=== PATIENT | female | born 1945 | race Native Hawaiian/Other Pacific Islander ===

== ENCOUNTER 2020-06-16 11:46 | Outpatient (CLI) | payer OTHER, BC | END 2020-06-16 19:35 | disposition home or self-care (01) | LOC: LABW 11:46 | PROVIDERS: ATTEND Internal Medicine | DX: E53.8 Deficiency of other specified B group vitamins (principal) | CPT/HCPCS: 36415; 82607; 82747 ==

== ENCOUNTER 2020-07-07 11:48 | Inpatient (IN) | payer OTHER, BC ==
[~2020-07-07] VITALS: Ht 162.6 cm; Wt 78.9 kg
[2020-07-07 11:57] VITALS: BP 149/83; TEMP 99.3
[2020-07-07 13:18] LABS: PLATELET COUNT 262 K/uL (152-353)
[2020-07-07 13:23] LABS: POTASSIUM 4.9 mmol/L (3.6-5.2)
[2020-07-07 14:00] VITALS: BP 137/73
[2020-07-07 17:49] VITALS: BP 162/77; TEMP 98.3; Ht 162.6 cm; Wt 78.9 kg
[2020-07-07] MEDS ORDERED: HYDR5TAB9 PO (17:58)
[2020-07-07] MEDS ORDERED: JANUVIA100 MG PO (17:58)
[2020-07-07] MEDS ORDERED: GLIM4TAB PO (17:59)
[2020-07-07] MEDS ORDERED: SERTRALINE HYDR50 MG PO (18:00)
[2020-07-07] MEDS ORDERED: CYCL10TA35 PO (18:01)
[2020-07-07] MEDS ORDERED: METO50TA27 PO (18:02)
[2020-07-07] MEDS ORDERED: HYDRALAZINE25 MG PO (18:03)
[2020-07-07] MEDS ORDERED: MELOXICAM7.5 MG PO (18:05)
[2020-07-07] MEDS ORDERED: FOLI1TAB26 PO (18:06)
[2020-07-07] MEDS ORDERED: METF500T PO (18:07)
[2020-07-07] MEDS ORDERED: SIMV20TA2 PO (18:07)
[2020-07-07] MEDS ORDERED: ALEN70TA19 PO (18:08)
[2020-07-07] MEDS ORDERED: INSUINJP SC (18:11)
[2020-07-07] MEDS ORDERED: CEFU500T2 PO (18:12)
[2020-07-07 19:43] VITALS: BP 154/77; TEMP 97.6
[2020-07-07 23:34] VITALS: BP 124/50; TEMP 98.2
[2020-07-08 03:50] VITALS: BP 141/77; TEMP 97.4
[2020-07-08 04:51] LABS: PLATELET COUNT 252 K/uL (152-353)
[2020-07-08 08:00] VITALS: BP 138/83; TEMP 98.2
[2020-07-08 12:03] VITALS: BP 137/75; TEMP 98.3
[2020-07-08 14:00] VITALS: BP 144/85; TEMP 98.3
[2020-07-08 19:54] VITALS: BP 147/81; TEMP 99.2
[2020-07-08 23:54] VITALS: BP 143/78; TEMP 98.2
[2020-07-09 04:03] VITALS: BP 153/79; TEMP 98.1
[2020-07-09 05:39] LABS: PLATELET COUNT 276 K/uL (152-353)
[2020-07-09 05:44] LABS: POTASSIUM 3.5 mmol/L (3.6-5.2)
[2020-07-09 08:00] VITALS: BP 147/91; TEMP 98.1
[2020-07-09 12:00] VITALS: BP 162/90; TEMP 98.5
[2020-07-09 16:00] VITALS: BP 156/84; TEMP 98.9
[2020-07-09 20:00] VITALS: BP 167/92; TEMP 99.2
[2020-07-10] VITALS: BP 132/74; TEMP 99.5
[2020-07-10 04:07] VITALS: BP 165/88; TEMP 97.5
[2020-07-10 05:01] LABS: POTASSIUM 3.8 mmol/L (3.6-5.2)
[2020-07-10 05:30] LABS: PLATELET COUNT 289 K/uL (152-353)
[2020-07-10 08:00] VITALS: BP 110/67; TEMP 98.1
[2020-07-10 12:00] VITALS: BP 136/85; TEMP 98.4
[2020-07-10 16:00] VITALS: BP 156/81; TEMP 97.3
[2020-07-10 20:00] VITALS: BP 181/98; TEMP 98
[2020-07-11] VITALS: BP 159/94; TEMP 97.2
[2020-07-11 04:00] VITALS: BP 163/96; TEMP 98
[2020-07-11 05:45] LABS: POTASSIUM 3.3 mmol/L (3.6-5.2)
[2020-07-11 06:48] LABS: PLATELET COUNT 326 K/uL (152-353)
[2020-07-11 08:00] VITALS: BP 169/92; TEMP 98.2
[2020-07-11 12:00] VITALS: BP 145/81; TEMP 97.5
== END 2020-07-11 13:48 | disposition swing bed (61) | DRG 948 ==
LOC: ED 11:48 → MED/SURG 16:30
PROVIDERS: ADMIT Family Medicine; ATTEND Internal Medicine Endocrinology, Diabetes & Metabolism
DX: R53.1 Weakness (principal); I69.354 Hemiplegia and hemiparesis following cerebral infarction affecting left non-dominant side; E86.0 Dehydration; E83.52 Hypercalcemia; Z91.81 History of falling; D72.818 Other decreased white blood cell count; E11.9 Type 2 diabetes mellitus without complications; E78.49 Other hyperlipidemia
CPT/HCPCS: 36415; 80048; 80053; 81000; 85027; 87635; 96360; 99284; J0696; J1650; J1815; J1956; J3490; U0003

== ENCOUNTER 2020-07-11 13:48 | Inpatient (IN) | payer OTHER, BC ==
[~2020-07-11] VITALS: Ht 162.6 cm; Wt 77.1 kg
[~2020-07-11 13:48] MED LIST: ALEN70TA19 PO; CEFU500T2 PO; CYCL10TA35 PO; FOLI1TAB26 PO; GLIM4TAB PO; HYDR5TAB9 PO; HYDRALAZINE25 MG PO; INSUINJP SC; JANUVIA100 MG PO; MELOXICAM7.5 MG PO; METF500T PO; METO50TA27 PO; SERTRALINE HYDR50 MG PO; SIMV20TA2 PO
[2020-07-11 17:29] VITALS: BP 176/96; TEMP 98.5; Ht 162.6 cm; Wt 77.1 kg
[2020-07-11 20:00] VITALS: BP 173/100; TEMP 98.3
--- NOTE | 2020-07-11 20:40 | NUR ---
ENTERED PATIENT'S ROOM AT THIS TIME. PATIENT RESTING QUIETLY IN BED WATCHING TV. NC INTACT @ 3L/MIN. LABORED WORK OF BREATHING NOTED. PT STATES SHE DOES NOT FEEL SHORT OF BREATH. PM ASSESSMENT PERFORMED AT THIS TIME. DENIES PAIN. NAD NOTED. BED ALARM ON. BED LOCKED AND IN LOWEST POSITION. CALL LIGHT WITHIN EASY REACH.
--- NOTE | 2020-07-11 23:30 | NUR ---
ENTERED PATIENT'S ROOM TO RECHECK BLOOD PRESSURE. 171/97 AT THIS TIME. PATIENT WAS GIVEN HYDRALAZINE 25MG, METOPROLOL 50MG, AMLODIPINE 5MG @ 2029. PATIENT WAS CONFUSED UPON WAKING, STATING, "WHERE IS TIGER AT?" SHE WAS UNAWARE THAT SHE WAS IN THE HOSPITAL. THIS BOAT MECHANIC HAD TO RE-ORIENT HER SEVERAL TIMES. AFTER RE-ORIENTING HER, PATIENT WAS ABLE TO ANSWER ALL QUESTIONS REGARDING TIME, DATE. I DID ASSIST HER TO THE BEDSIDE COMMODE. I HAD TO REMIND PATIENT TO USE THE QUAD CANE FOR ASSISTANCE. NO NEW ONSET OF WEAKNESS NOTED- SHE HAS LONG-STANDING LEFT SIDED WEAKNESS FROM A PREVIOUS CVA. 9661- CALLED AND SPOKE WITH DR. LO REGARDING THE FOLLOWING. V/S: 171/97, 97% ON 3L, 88, 97.8, BLOOD SUGAR 179. THIS BOAT MECHANIC DID EXPRESS THAT THE B/P WAS NOT CRITICAL, BUT WAS CONCERNED ABOUT THE CONFUSION AND PT'S CVA HISTORY. NO ORDERS GIVEN- CONTINUE TO MONITOR PATIENT.
--- NOTE | 2020-07-12 04:10 | NUR ---
PT'S CURRENT BP IS 160/87 NOW. ALERT AND ORIENTED X 4. ASSISTED TO BSC. 200CC OF CLEAR, YELLOW URINE REMOVED. RESTING QUIETLY IN BED NOW. NC INTACT. BED LOCKED AND IN LOWEST POSITION. BED ALARM ON. CALL LIGHT WITHIN EASY REACH.
--- NOTE | 2020-07-12 06:36 | NUR ---
PATIENT RESTING QUIETLY IN BED WITH EYES CLOSED. NC INTACT @ 3L. RESPIRATIONS EVEN AND UNLABORED. NAD NOTED. BED LOCKED AND IN LOWEST POSITION. SR UP X 2. CALL LIGHT WITHIN EASY REACH.
[2020-07-12 08:00] VITALS: BP 159/100; TEMP 98.1
--- NOTE | 2020-07-12 08:15 | NUR ---
PATIENT RESTING IN BED. MORNING MEDICATIONS GIVEN. PATIENT TOLERATED WELL. PATIENT ASKED TO USE BSC. PCT ASSISTED PATIENT TO BSC. PATIENT BATHED SELF WITH MINIMAL ASSISTANCE. PATIENT BACK IN BED. PATIENT TOLERATED WELL. NAD NOTED.
--- NOTE | 2020-07-12 12:43 | NUR ---
Ms. Mcgregor is a 74 year old white female admitted to this facility on 07/11/2020 for short term rehab. Ms. Mcgregor was admitted from the [facility] after IP hospitalization from 07/07/2020 - 07/11/2020. Patient's primary diagnosis for this swing bed stay is leucocytosis for which she was receiving IV antibiotics. Resident has a right frontal scalp contusion from a recent fall with a history of recurrent falls. Additional diagnoses include: diabetes mellitus type 2, failure to thrive, hyperlipidemia, vitamin D deficiency, history of CVAs with residual left-sided weakness, pernicious anemia, and osteopenia. Resident reported that she lives alone and her family is not able to provide the 02/12 care that she requires at this time. Resident also reported that sometimes she is unable to lift her left leg while ambulating, essentially "dragging" her left leg which she says contributes to her fall risk. Resident was noted to use her right hand to open the fingers of her left hand as she was unable to extend her left fingers otherwise. She also used her right hand to lift her left arm and move it as needed. Ms. Mcgregor requires 24 hour custodial for observation and assessment of her condition, as well as medication and care plan management. Resident requires PT, OT and ST services 5 days per week for treatment of specified diagnosis. These services can only be provided on an inpatient basis, which is why this is a practical matter. Case management will continue to observe and assist with any medically related needs as needed.
--- NOTE | 2020-07-12 16:15 | NUR ---
PCT INFORMED ME OF FSBS OF 69. GAVE PATIENT ORANGE JUICE AND WILL RECHECK SHORTLY.
--- NOTE | 2020-07-12 16:40 | NUR ---
FSBS RECHECKED AT 81. WILL CONTINUE TO MONITOR.
--- NOTE | 2020-07-12 20:35 | NUR ---
PATIET HAS BEEN HELPED WITH MOUTH CARE AND LIPS HAVE BEEN LUBRICATED. PATIENT DENIES ANY PAIN
--- NOTE | 2020-07-13 00:18 | NUR ---
PATIENT IS SHOWING MARKED IMPROVEMENT IN GETTING UP TO THE BSC.
--- NOTE | 2020-07-13 01:43 | NUR ---
PATIENT HAS HAD A COMPLETE BED CHANGE
--- NOTE | 2020-07-13 05:46 | NUR ---
PATIENT IS RESTING AND BREATHS ARE EVEN NON LABORED. PATIENT EARLIER DENIED ANY PAIN
--- NOTE | 2020-07-13 09:30 | NUR ---
PHYSICAL AND SPEECH THERAPY IN TO SEE PATIENT.
--- NOTE | 2020-07-13 10:15 | NUR ---
UPDATE GIVEN TO FAMILY MEMBER SHANNAN.
--- NOTE | 2020-07-13 10:17 | NUR ---
PATIENT AMBULATING IN HALLWAY.
--- NOTE | 2020-07-13 17:48 | NUR ---
11AM SOAP SUDS ENEMA COMPLETED AT THIS TIME PER MD ORDERS. LARGE WATERY BM
--- NOTE | 2020-07-13 18:00 | NUR ---
PT DENIES ANY PAIN OR DISCOMFORT. NO NEEDS VOICED. CALL LIGHT IN REACH
[2020-07-13 19:34] VITALS: BP 161/81; TEMP 99.5
--- NOTE | 2020-07-14 02:41 | NUR ---
PATIENT IS BEINGING MORE ABLE TO ASSIST WITH GOING TO THE BSC. PATIENT IS GETTING STRONGER AND MORE CORRDINATED. HER UTI RESOLVES SHE HAS LESS PROBLEMS WITH URGENCY.
[2020-07-14 08:00] VITALS: BP 158/90; TEMP 97.9
--- NOTE | 2020-07-14 14:17 | NUR ---
New Swing Rai patient per Marga Ha and read all of EMR and see EMR and chart for more details and informaiton. Diagnosis of DM II/2, Hyperlipidemia, Pernicious Anemia, Vitamin D Deficiency,cough, SOB, CP, Diarrhea, Ostenpina, CVA with left sided weakness,agbominal pain, weakness, FTT, orders for OT and PT to work with the patient as needed. Patient is on a 1800 calorie Mechanical Soft diet plan with thin liquids, Leukocytosis, dehydrated with hypocalcemia, 75yoF, and is on insulin, folica maulik, metformin and see EMR for all medciations and RD reviewed all medications, antobiotics, and has had recurrent falls/frequent falls. contusion and is 5'4" or 64 " and IBW = 120+/-10% (08 to 132 lbs.) and kcal needs for IBW x 25 = 1400, x 30 = 1600, x 35 = 1900, x 40 = 2200 kcal/day, protein needs x 1.2 to 1.5 - 65 to 82 grams per day and fluids x 25 to 40 = 1400 to 2200 ml/cc per day and needs increase fluids d/t diarrhea, and dehydration and has dx. of CVS with right sided weakness. When admitted at 166.5 and per MD's notes at 174 lbs. with an increase of 7.5 lbs. BMI at 174 lbs. 29.86 and is overweight and is 145% of IBW. BP elevated at 158/90, labs that are elevated areB12, VLDL, (46), WBC, RDQ, gl 150, HGBA1C at 8.0 and all elevated and the labs depressed are: RBE, Hgb, Hct, ALT, and alb at 3.0, also has a folic acid deficiency, PT and OT working wiht the resdient and on 3-4 ate 75% and on 3-5 ate 100% saw nursing notes wiht this information. Arthritis and see MD notes that I read. Talked with Marga Ha about the patient and Mehran has been working closely with the patient and now has chopped meats d/t left sided weakness, has had multiple strokes, sometimes choking and coughing when eating, here 2 weeks and then admitted to the Swing Bed Program, has a Fat cat at home and had a brother I think she was taking care of and he while she was in the hospital; walked 125 feet today with contact guard assistance. Diabetic and is cognitive and doing much better than when admitted and has some disorganized thinking. Diabetic and per Marga had a perfect score on Cognitive test she gave the patient. She has made great progress and diet has been upgraded and has taken 1 vaccine and is about to take the second vaccine. RD Recommendations: 1-Make sure Hydrated 2-Monitor Labs 3-May want ST to evaluate 4-May want to add 2 Gm Na to diet plan d/t elevated BP and dx. and if won't follow have a dietary refusal form signed 5-Strees to add HIGH FIBER to help with glucose and HGBA1C levels 6-Increase foods High In Fe 7-Pain management 8-FTT diagnosis add a MVI and appetite stimulant if a decrease of po intake at present time eating 75 to 100% of 2 meals. If not eating 75% of meals add both and d/c when eating >75% of meals. 9-Add a supplement when eating <75% of meals. 10-would go ahead and add Vitamin C 500 mg BID and 11-ZNSO4 220 gm per day and d/c in 14 days 12-may want to add Beneprotein BID
--- NOTE | 2020-07-14 15:51 | NUR ---
PT DROPPED HYDRALAZINE AND FLEXERIL ON THE FLOOR, WASTED MEDS IN SHARPS CONTAINER. WILL GET NEW MEDS FOR PT.
--- NOTE | 2020-07-14 17:48 | NUR ---
CRE SWAB COLLECTED AND SENT TO THE LAB.
[2020-07-14 20:00] VITALS: BP 157/75; TEMP 97.8
--- NOTE | 2020-07-14 20:00 | NUR ---
ENTERED PATIENT'S ROOM. PATIENT LYING IN BED IN LOW SUAREZ'S POSITION WATCHING TV. ON RA. NAD NOTED AT THIS TIME. SHE DENIES PAIN. STATES SHE HAD AN ENEMA YESTERDAY AND HAS HAD FREQUENT BM'S TODAY. STILL USING QUAD CANE TO AMBULATE TO BSC. HAS LEFT-SIDED WEAKNESS FROM PREVIOUS CVA. BED LOCKED AND IN LOWEST POSITION. SR UP X 2. CALL LIGHT WITHIN EASY REACH.
--- NOTE | 2020-07-15 03:20 | NUR ---
ASSISTED PATIENT TO BSC AT THIS TIME. TRANSFERRED USING QUAD CANE. APPROX. 350CC OF CLEAR, YELLOW URINE VOIDED. ASSISTED PATIENT BACK INTO BED. BED ALARM ON. SR UP X 2. CALL LIGHT WITHIN EASY REACH.
--- NOTE | 2020-07-15 17:01 | NUR ---
Patient is currently lying in bed with eyes opened, watching tv. She has been up sitting in chair during this shift, and uses quad cane to transfer from the bed to the c, with supervision and small amount of assistance. Patient is able to reposition herself in bed by using the siderails to pull herself up in the bed. Patient is able to feed herself without assistance. COOKIE Stafford assisted patient with sponge bath, and patiet brushed her own teeth. Bed linens were changed. No acute distress noted. Call light within reach and bed alarm is on. Will continue to monitor.
[2020-07-15 20:00] VITALS: BP 151/79; TEMP 98.4
--- NOTE | 2020-07-15 20:50 | NUR ---
PT AWAKE LAYING IN BED WITH NO S/S OF PAIN OR DISTRESS NOTED, DENIES ANY PROBLEMS AT THIS TIME, TALKATIVE WITH SHRINKING MACHINE OPERATOR, RESP RATE NORMAL AND NONLABORED, O2 AT 2 LPM VIA NC. GAVE NIGHTLY MEDICATIONS WHOLE WITH ICE WATER WITH NO PROBLEMS OR S/S OF ASPIRATION NOTED. PT ONLY USES R HAND/ARM PARALYSIS NOTED TO L ARM/HAND SO SHRINKING MACHINE OPERATOR ASSISTED TO HOLD CUP OF WATER AND HAND IT TO PT WHEN SHE NEEDED IT. WILL MONITOR CLOSELY, RAILS UP, BED IN LOW POSITION WITH ALARM ON, CALL LIGHT IN REACH, ENCOURAGED TO CALL NEEDED.
--- NOTE | 2020-07-15 23:00 | NUR ---
PT CALLED FOR ASSIST TO BSC. FOUND PT ALERT AND ORIENTED LAYING IN POSITION OF COMFORT IN BED WITH NO S/S OF PAIN OR DISTRESS NOTED, RESP RATE NORMAL/NONLABORED, O2 VIA NC IN USE, DENIES ANY PAIN OR PROBLEMS. ASSISTED TO AND FROM BSC, NOTE PT USES QUAD CANE, WEAKNESS TO L LEG AND PARALYSIS NOTED TO L ARM/HAND. PT TALKATIVE WITH PROGRAM DIRECTOR/AIR PERSONALITY, DENIES ANY OTHER NEEDS AT THIS TIME. TALKING TO PROGRAM DIRECTOR/AIR PERSONALITY ABOUT HER CAT "TIGER". WILL MONITOR CLOSELY, RAILS UP, BED IN LOW POSITION WITH ALARM ON, CALL LIGHT IN REACH, ENCOURAGED TO CALL NEEDED PT ACKNOWLEDGES UNDERSTANDING. URINATED 200ML CLEAR LIGHT YELLOW URINE IN BSC.
--- NOTE | 2020-07-16 00:02 | NUR ---
PT AWAKE WITH NO DISTRESS OR ACUTE NEEDS NOTED, RESP RATE NONLABORED/NORMAL, O2 IN USE VIA NC, STAFF BROUGHT PT BLANKET PER REQUEST, WILL MONITOR CLOSELY, RAILS UP, BED IN LOW POSITION WITH ALARM ON, CALL LIGHT IN REACH.
--- NOTE | 2020-07-16 03:14 | NUR ---
RESTING IN BED WITH EYES CLOSED, NO S/S OF PAIN OR DISTRESS NOTED, RESP RATE NONLABORED, O2 IN USE VIA NC(PRN), WILL MONITOR CLOSELY, RAILS UP, BED IN LOW POSITION WITH ALARM ON, CALL LIGHT IN REACH.
--- NOTE | 2020-07-16 04:20 | NUR ---
CALL LIGHT ANSWERED. PT FOUND AWAKE AND ORIENTED LAYING IN BED, STATES SHE NEEDS TO USE BSC. ASSISTED PT TO AND FROM BSC USING CANE AND SOME ASSIST FROM BANKING PARALEGAL. DENIES ANY OTHER PROBLEMS OR NEEDS, WILL MONITOR, RAILS UP, BED IN LOW POSITION WITH ALARM ON, CALL LIGHT IN REACH, ENCOURAGED TO CALL NEEDED.
--- NOTE | 2020-07-16 05:00 | NUR ---
CALL LIGHT ANSWERED, PT FOUND AWAKE WITH NO DISTRESS NOTED, RESP RATE NONLABORED, DENIES ANY PAIN OR PROBLEMS. ASSISTED TO AND FROM BSC, NOTE PT URINATED AND HAD MEDIUM SOFT BM. WILL MONITOR CLOSELY, RAILS UP, BED IN LOW POSITION WITH ALARM ON, ENCOURAGED TO CALL NEEDED, CALL LIGHT IN REACH.
[2020-07-16 05:33] LABS: PLATELET COUNT 407 K/uL (152-353)
[2020-07-16 05:40] LABS: POTASSIUM 4.2 mmol/L (3.6-5.2)
--- NOTE | 2020-07-16 07:30 | NUR ---
ENTERED PT'S ROOM, PT WAS AWAKE IN LF. PT IS A&OX4, PRETTY PRESENT. HEART SOUNDS ARE REGULAR AT NORMAL SINUS RHYTHM, PULSES FELT IN ALL 4 EXTREMETIES, WITH <3 SEC CAP REFILL. LUNG SOUNDS ARE CLEAR, BREATHING IS EVEN AND NONLABORED, NO COUGH IS PRESENT. GASTRIC SOUNDS ARE HEARD IN ALL 4 QUADRANTS, LBM WAS 07/16/20. WEAKNESS IS NOTED ON THE LT SIDE IN BOTH THE UPPER AND LOWER EXTREMITY. LT HAND IS CONTRACTURED SHUT AND VERY WEAK. PT DENIES ANY PAIN OR NEEDS AT THIS TIME. PT IS RESTING IN LF NAD IS NOTED AT THIS TIME.
[2020-07-16 08:00] VITALS: BP 150/75; TEMP 97.9
--- NOTE | 2020-07-16 08:30 | NUR ---
ENTERED PT'S ROOM TO GIVE MORNING MEDICATIONS. PT WAS IN HF EATING BREAKFAST WITH NO ASSISTANCE. PT SWALLOWED MEDICATIONS WITHOUT ANY DIFFICULTIES. PT IS NOW IN HF RESTING. NAD IS NOTED AT THIS TIME.
--- NOTE | 2020-07-16 12:54 | NUR ---
MD CONTACTED NURSES STATION TO DISCUSS FASTING BLOOD SUGARS. DUE TO INCREASED BLOOD SUGARS MD CHANGED THE ORDER FOR LEVEMIR FLEXPEN TO 9U BID. ORDER HAS BEEN WRITTEN AND FAXED TO PHARMACY.
[2020-07-16 20:00] VITALS: BP 150/81; TEMP 98.6
--- NOTE | 2020-07-16 21:15 | NUR ---
ENTERED PATIENT'S ROOM. PATIENT RESTING QUIETLY IN BED. NC INTACT @ 2L. NAD NOTED. BED LOCKED AND IN LOWEST POSITION. SR UP X 2. CALL LIGHT WITHIN EASY REACH.
--- NOTE | 2020-07-17 03:15 | NUR ---
ASSISTED PATIENT TO BSC. 300CC OF CLEAR, YELLOW URINE VOIDED. BED LOCKED AND IN LOWEST POSITION. CALL LIGHT WITHIN EASY REACH.
--- NOTE | 2020-07-17 05:30 | NUR ---
PATIENT RESTING QUIETLY IN BED WITH EYES CLOSED. RESPIRATIONS EVEN AND UNLABORED. NAD NOTED. BED LOCKED AND IN LOWEST POSITION. CALL LIGHT WITHIN EASY REACH.
[2020-07-17 08:00] VITALS: BP 159/77; TEMP 98.4
--- NOTE | 2020-07-17 09:24 | NUR ---
Went to Ms. Mcgregor's room to visit with her, knocked on her door and she gave permission to enter. Patient was sitting in bed, carrying on a conversation with someone on the telephone. Told patient I didn't want to interrupt her conversation and would return later after her phone call was finished. Resident said, "ok, come back later".
--- NOTE | 2020-07-17 09:30 | NUR ---
PATIENT RESTING IN BED. NAD NOTED. PATIENT NOT WEARING O2. PATIENT FREE OF NEEDS AT THIS TIME. MORNING MEDS ADMINISTERED.
--- NOTE | 2020-07-17 11:00 | NUR ---
PATIENT CALLED TO USE BSC. PATIENT TRANSFERRED WITH MINIMAL ASSISTANCE USING A QUAD CANE. PATIENT WIPED HERSELF. PATIENT TRANSFERRED BACK TO BED. PATIENT TOLERATED WELL. NAD NOTED.
--- NOTE | 2020-07-17 12:18 | NUR ---
Patient watching ME television, said she just finished occupational therapy. Provided patient a small book as a gift. Patient appreciative and smiling while receiving book. Again discussed activity preferences with resident and today resident asked for [id number] puzzles and a pencil. Provided multiple puzzles to resident and pencil per her request. Advised that is she wanted more or any other type activities to just let staff know. Verbalized understanding.
--- NOTE | 2020-07-17 16:30 | NUR ---
PATIENT RESTING IN BED. WEARING A SPLINT ON LEFT HAND FROM THERAPY. THERAPY ASKED HER TO REMOVE THE SPLINT AT 6. PATIENT FREE OF NEEDS AT THIS TIME. WILL CONTINUE TO MONITOR. NAD NOTED.
--- NOTE | 2020-07-17 18:00 | NUR ---
PATIENT REMOVED SPLINT. NAD NOTED. PATIENT FREE OF NEEDS.
[2020-07-17 19:53] VITALS: BP 141/77; TEMP 98.6
--- NOTE | 2020-07-18 01:16 | NUR ---
PATIENT IS STEADLY IMPROVING WITH HER ADLS. PATIENT IS HIGHLY INVOLVED IN HER CARE AND IS CAN BETTER EXPLAIN HER NEEDS. PATIENT STATES THAT SHE IS WORKING WELL IN HER PHYSICAL THERAPHY
[2020-07-18 08:00] VITALS: BP 144/84; TEMP 98.7
--- NOTE | 2020-07-18 08:00 | NUR ---
PATIENT RESTING IN BED. MORNING MEDICATIONS GIVEN. 3 UNITS OF INSULIN GIVEN PER MD ORDERS PER SLIDING SCALE.
--- NOTE | 2020-07-18 12:15 | NUR ---
3 UNITS ADMINISTERED VIA SLIDING SCALE PER MD ORDERS. NAD NOTED. PATIENT TOLERATED WELL. PATIENT SITTING UP IN CHAIR. PHYSICAL THERAPY AT BEDSIDE.
--- NOTE | 2020-07-18 16:38 | NUR ---
At 4 PM, visited Ms. Mcgregor in her room. She was watching tv. She said she flips between [employer], the [employer] channel and [employer]. She expressed concern that she thought she left her medicare and insurance cards at the admissions office. We contacted the admissions office together and learned that they do not have her cards. We then contacted her first cousin Ninfa, which is the primary contact on Ms. Mcgregor's demographic sheet, as Ninfa was with Ms. Mcgregor when she admitted to this center. Ninfa stated she did receive Ms. Mcgregor's cards and is keeping them safe for her. Ms. Mcgregor was very relieved and stated, "Thank goodness! I love you Ninfa." After Ms. Mcgregor and Ninfa finished their conversation, Ms. Mcgregor stated, "It is only 4 o'clock and I am starving!" Offered a snack and she accepted. Noted [id number] puzzles on her overbed table that she has been working on when she desires.
[2020-07-18 20:09] VITALS: BP 136/66; TEMP 97.5
--- NOTE | 2020-07-18 20:15 | NUR ---
ENTERED PATIENT'S ROOM AT THIS TIME. PATIENT RESTING QUIETLY IN BED. .RESPIRATIONS EVEN AND UNLABORED. NC INTACT @ 2L/MIN. PATIENT SUPERVISED WHILE PERFORMING BED MOBILITY. HOB LOWERED FOR PATIENT, AND SHE WAS ABLE TO PULL HERSELF UP IN BED INDEPENTLY. SHE STATES, "I NEED TO DO THINGS FOR MYSELF." SHE DENIES PAIN OR ANY OTHER CONCERNS OR COMPLAINTS AT THIS TIME. BED LOCKED AND IN LOWEST POSITION. SR UP X 2. CALL LIGHT WITHIN EASY REACH.
--- NOTE | 2020-07-19 00:10 | NUR ---
ASSISTED PATIENT TO BSC. EXTENSIVE ASSISTANCE X ONE PERSON PROVIDED TO HELP PATIENT SIT UP IN BED. LIMITED ASSIST PROVIDED WHILE PATIENT WAS TRANSFERRING TO BSC. PATIENT ABLE TO PERFORM HYGIENE CARE INDEPENDENTLY. PATIENT HAD SMALL, SEMI-FORMED BM. LIMITED ASSISTANCE PROVIDED TO TRANSFER PATIENT BACK INTO BED. NC INTACT @ 2L/MIN. BED LOCKED AND IN LOWEST POSITION. SR UP X 2. CALL LIGHT WITHIN EASY REACH.
--- NOTE | 2020-07-19 06:15 | NUR ---
PT RESTING QUIETLY IN BED WITH EYES CLOSED. RESPIRATIONS EVEN AND UNLABORED. NC INTACT @ 2L. NAD NOTED. BED LOCKED AND IN LOWEST POSITION. CALL LIGHT WITHIN REACH.
[2020-07-19 08:00] VITALS: BP 146/50; TEMP 97.6
--- NOTE | 2020-07-19 19:20 | NUR ---
Patient's bs commode was moved and placed over commode in bathroom, for pt to ambulate to the bathroom, however she has had episodes of incontience while attempting to ambulate to the bathroom. Pt is getting frusterated about wetting herself. Bedside commode was moved back to the side of the bed. Bed alarm is set d/t pt attempting to get up by herself. Pt is able to pull herself up in the bed by holding onto the side rails while bed is in flat position, without any assistance, and she is able to eat independently. No acute distress noted and call light is within reach.
[2020-07-19 20:00] VITALS: BP 140/79; TEMP 97.2
--- NOTE | 2020-07-19 21:15 | NUR ---
ENTERED PATIENT'S ROOM AT THIS TIME. PATIENT RESTING QUIETLY IN BED. RESPIRATIONS EVEN AND UNLABORED. NAD NOTED. INSULIN AND PM MEDICATION ADMINISTERED. ASSISTED PATIENT TO BSC. LIMITED ASSIST X ONE PROVIDED. PATIENT ABLE TO PERFORM HYGIENE WITHOUT ASSISTANCE. ASSISTED BACK INTO BED. CALL LIGHT WITHIN EASY REACH.
--- NOTE | 2020-07-20 02:35 | NUR ---
ASSISTED PATIENT TO BSC. LIMITED ASSISTANCE PROVIDED AT THIS TIME.
[2020-07-20 08:00] VITALS: BP 128/64; TEMP 97.9
--- NOTE | 2020-07-20 12:59 | NUR ---
09/19/2020 1300 ASSISTED TO BESIDE COMMODE VOIDED CLEAR YELLOW URINE APPROX 300ML.SITTING ON BED EATING LUNCH TOLERATING WELL.CC
--- NOTE | 2020-07-20 13:54 | NUR ---
07/20/2020 1350 PT SITTING UP IN BED EATING SOME COOKIES TOLERATING WELL.NAD NOTED.CC
--- NOTE | 2020-07-20 14:54 | NUR ---
07/20/2020 1430 PT LYING IN HF EATING SOME COOKIES NAD NOTED.CC
--- NOTE | 2020-07-20 17:23 | NUR ---
07/20/2020 1700 ASSISTED TO BEDSIDE COMMODE VOIDED CLEAR YELLOW URINE.ASSISTED BACK TO BED.PT IN BED DOING CROSSWORD PUZZLES.CALL LIGHT WITHIN REACH.CC
--- NOTE | 2020-07-20 18:43 | NUR ---
07/20/2020 1830 ASSISTED PT OUT OF BED TO BEDSIDE COMMODED VOIDED CLEAR URINE. BRIEF CHANGED ASSISTED BACK TO BED NO DIFFICULTY PT USING WALKER WHILE GETTING BACK IN BED.CC
[2020-07-20 20:00] VITALS: BP 125/67; TEMP 97.7
--- NOTE | 2020-07-20 20:40 | NUR ---
ENTERED PATIENT'S ROOM AT THIS TIME. PATIENT RESTING QUIETLY IN BED. RESPIRATIONS EVEN AND UNLABORED. NAD NOTED. PM MEDICATION AND INSULIN GIVEN. BED LOCKED AND IN LOWEST POSITION. CALL LIGHT WITHIN EASY REACH.
--- NOTE | 2020-07-21 03:08 | NUR ---
PATIENT AWAKE AND WATCHING TV AT THIS TIME. NAD NOTED. BED LOCKED AND IN LOWEST POSITION. CALL LIGHT WITHIN EASY REACH.
--- NOTE | 2020-07-21 06:20 | NUR ---
PATIENT RESTING QUIETLY IN BED. PCT JUST FINISHED ASSISTING HER TO BSC. NAD NOTED. DENIES ANY CONCERNS OR COMPLAINTS. CALL LIGHT WITHIN EASY REACH.
[2020-07-21 08:00] VITALS: BP 138/68; TEMP 97.8
--- NOTE | 2020-07-21 10:48 | NUR ---
07/21/2020 0945 PT TO BSC WITH ASSSIST PER PCT PT HAD LARGE SOFT BM. PT IS UP IN CHAIR NO C/O VOICED.CC
--- NOTE | 2020-07-21 12:20 | NUR ---
07/21/2020 1225 PHYSICAL THERAPY IN ROOM TO ASSIST PATIENT WITH THERAPY.CC
--- NOTE | 2020-07-21 12:46 | NUR ---
07/21/2020 1250 LUNCH TRAY BROUGHT TO PATIENT PHYSICAL THERAPY PRESENT IN ROOM.CC
--- NOTE | 2020-07-21 13:41 | NUR ---
Met with the resdient today by phone wiht the SWING BED TEAM and admission weight per phone call and per patient was 175 and now at 157.9 with a of 17.1 lbs. and per patient she wants to decrease weight and refuses the supplement and wants to exercise and really wants to go home and stated she is missing her house and she has a Go To man that helps her with the ramp and all as needed for her when she gets home. RD available as needed.
--- NOTE | 2020-07-21 14:05 | NUR ---
In pts room this am for weekly IDT meeting with team, pt sitting in recliner and participating with meeting. When questioned if she was eating well, she stated "yes" and whn questioned if she needed a supplement she stated "no". She went on to state that she had been trying to "lose a little" weight, current weight 167 this am, Dr. Gaitan and dietary verbalize understanding and agreement of this. She stated that she will need a hemiwalker for home use and that she already has ramp to back door and has modificiations in her home for using her wheechair also. I will phone her cousin and closest caregiver, Ninfa Page at patients request to update her on plan of care and discharge plans.
--- NOTE | 2020-07-21 14:32 | NUR ---
07/21/2020 1435 PT SITTING UP IN CHAIR NO C/O VOICED.CALL LIGHT WITHIN REACH.CC
--- NOTE | 2020-07-21 16:15 | NUR ---
07/21/2020 1620 LYING IN BED AFTER SHOWER SAID SHE FEELS REALLY GOOD.CC
[2020-07-21 19:56] VITALS: BP 130/68; TEMP 98.4
--- NOTE | 2020-07-22 08:27 | NUR ---
STANDBY ASSIST PROVIDED FOR PT TO TRANSFER TO BSC FROM BED USING QUAD CANE. PT PROVIDES OWN PERICARE. PT A/O X 3, IN NAD, BOWEL SOUNDS PRESENT X3, ABD ROUND, SOFT, LAST STOOL TODAY, MED SOFT STOOL NOTED. L SIDED WEAKNESS NOTED. LUNGS CTA, NAD NOTED AT THIS TIME. CALL LIGHT IN EASY REACH, BED LOW, LOCKED, SR UP X2 FOR SAFETY, ALARM SET.
--- NOTE | 2020-07-22 08:34 | NUR ---
BREAKFAST DELIVERED TO ROOM, PT ASSISTED WITH TRAY SET UP. PT ABLE TO FEED SELF.
--- NOTE | 2020-07-22 10:03 | NUR ---
SCHEDULED AM MEDS DELIVERED TO ROOM, PT ABLE TO SWALLOW WHOLE WITH WATER.
--- NOTE | 2020-07-22 11:38 | NUR ---
STANDBY ASSIST PROVIDED FOR PT TRANSFER TO AND FROM BSC.
--- NOTE | 2020-07-22 12:48 | NUR ---
LUNCH TRAY DELIVERED TO ROOM WITH SET ASSISTANCE PROVIDED.
--- NOTE | 2020-07-22 13:44 | NUR ---
PT AWAKE, TALKING ON PHONE WITH FRIEND FROM GNOSTICIST, NAD NOTED AT THIS TIME. CALL LIGHTIN EASY REACH, BED LOW, LOCKED, SR UP X2 FOR SAFETY.
--- NOTE | 2020-07-22 13:48 | NUR ---
PT ASSISTED UP TO BSC USING QUAD CANE X 1 PERSON ASSIST. PT PROVIDED HER OWN PERICARE. PT ASSISTED BACK TO BED. BED LOW, LOCKED, SR UP X2 FOR SAFETY.
--- NOTE | 2020-07-22 17:31 | NUR ---
PT RESTING COMFORTABLY IN BED, IN NAD. BED ALARM ON.
--- NOTE | 2020-07-22 18:09 | NUR ---
PT UP TO RECLINER FOR DINNER X 1PERSON ASSIST. TRAY SET UP PROVIDED.
--- NOTE | 2020-07-22 18:39 | NUR ---
PT UP TO RECLINER STILL, IN NAD. CALL LIGHT IN EASY REACH. WILL CONTINUE TO MONITOR.
[2020-07-22 20:17] VITALS: BP 136/65; TEMP 97.7
[2020-07-23 07:51] VITALS: BP 135/72; TEMP 97.5
--- NOTE | 2020-07-23 08:11 | NUR ---
PT UP TO RECLINER WITH STANDBY ASSIST X1 USING QUAD CANE. PT A/O X3, IN NAD AT THIS TIME, DENIES PAIN, REPORTS SHE SLEPT WELL. LUNGS CTA, BOWEL SOUNDS ACTIVE WITH LAST BM THIS AM. NO EDEMA NOTED. CALL LIGHT IN EASY REACH. PT REMINDED TO CALL STAFF FOR ASSIST BEFORE GETTING OUT OF CHAIR. PT VERBALIZES UNDERSTANDING.
--- NOTE | 2020-07-23 12:17 | NUR ---
PT CONTINUES TO SIT UP IN RECLINER, STATES SHE FEELS BETTER SITTING UP THAN LAYING IN BED ALL THE TIME. SNACK PROVIDED ON REQUEST, PT PROACTIVE WITH SELF CARE AND ADLS, STATES SHE WILL BE GETTING A SHOWER AFTER LUNCH TODAY.
--- NOTE | 2020-07-23 13:35 | NUR ---
PT ASSISTED INTO SHOWER X 1 ASSIST FROM TECH. PER TECH, PT WAS ABLE TO CLIMB INTO THE SHOWER PER HERSELF. PT WASHED EVERYWHERE BUT HER BACK, WHICH WAS WASHED BY THE TECH. PT WAS ASSISTED OUT OF THE SHOWER WITH ONE HAND BY THE TECH. TECH ASSISTED WITH DRESSING WELL.
--- NOTE | 2020-07-23 14:00 | NUR ---
PT STILL UP IN RECLINER, VERBALIZES COMFORT AND DENIES NEEDS. CALL LIGHT IN EASY REACH. WILL CONTINUE TO MONITOR. RECLINER WHEELS LOCKED.
[2020-07-23 16:40] LABS: POTASSIUM 4.8 mmol/L (3.6-5.2)
[2020-07-23 16:45] LABS: PLATELET COUNT 327 K/uL (152-353)
--- NOTE | 2020-07-23 16:57 | NUR ---
PT STILL UP IN RECLINER, NAD OR NEEDS VERBALIZED AT THIS TIME. CALL LIGHT IN EASY REACH.
[2020-07-23 19:00] VITALS: BP 150/74; TEMP 98
--- NOTE | 2020-07-24 02:49 | NUR ---
PATIENT REQUIRES STAND BY ASSIST TO BSC. PATIENT IS INDEPENDENT IN MOVING IN THE BED. PATIENT IS VERBALIZING WILLINGNESS TO LEARN AND PREPARE TO GO HOME. PATIENT HAS NO BREAKDOWN NOTED. PATIENT AMBULATES WITH A QUADCANE
--- NOTE | 2020-07-24 07:45 | NUR ---
RESPONDED TO CALL LIGHT DUE TO PT NEEDING TO USE THE RESTROOM, PT AMBULATED TO BSC WITH WITHOUT ASSIST USING QUAD CANE SUPERVISON ONLY, ASSISTED PT WITH PULLING BRIEF BACK UP, PT AMBULATED BACK TO BED WITH QUAD CANE SUPERVISION ONLY AND POSITIONED HERSELF UP IN BED, NAD NOTED, NO FURTHER NEEDS AT THIS TIME, CALL LIGHT PLACED WITHIN EASY REACH, WILL CONTINUE TO MONITOR
[2020-07-24 08:00] VITALS: BP 137/63; TEMP 98.1
--- NOTE | 2020-07-24 15:30 | NUR ---
RESPONDED TO CALL LIGHT, PT SITTING ON BSC AT THIS TIME, HE AMBULATED WITH QUAD CANE WITHOUT ASSISTANCE OR SUPERVISION, PT AMBULATED BACK TO CHAIR WITH NO ASSISTANCE, I ASSISTED PT WITH PUTTING BRIEF BACK ON DUE TO PT HOLDING GOWN UP WITH ONE HAND, PT SITTING UP IN CHAIR AT THIS TIME, NAD NOTED, NO FURTHER NEEDS, PLACED CALL LIGHT WITHIN REACH, WILL CONTINUE TO MONITOR
--- NOTE | 2020-07-24 17:00 | NUR ---
OT IN RM WITH PT, PT DRESSED IN REGULAR CLOTHING, OT STATES PT DRESSED HERSELF, PT AMBULATING IN RM BY HERSELF USING QUADCANE ONLY AND OT THERE FOR SUPERVISION, NAD NOTED, NO NEEDS AT THIS TIME, WILL CONTINUE TO MONITOR
[2020-07-24 20:00] VITALS: BP 137/65; TEMP 98.9
--- NOTE | 2020-07-25 07:48 | NUR ---
RESPONDED TO CALL LIGHT, PT REQUESTING TO USE THE RESTROOM, PT AMBULATES TO THE C WITH QUADCANE AND NO ASSISTANCE, ASSISTED WITH PULLING BRIEF BACK UP, PT AMBULATED BACK TO BED AND ADJUSTED HERSELF UP IN BED WITHOUT ASSISTANCE, NO FURTHER NEEDS AT THIS TIME, CALL LIGHT PLACED WITHIN REACH, WILL CONTINUE TO MONITOR
--- NOTE | 2020-07-25 08:00 | NUR ---
ASSISTED PT FROM BSC TO BEDSIDE CHAIR, ASSISTED PT WITH PULLING UP BRIEF, PT AMBULATED TO BEDSIDE CHAIR USING QUADCANE AND NO ASSISTANCE, PT HAS NO FURTHER NEEDS AT THIS TIME, PLACED CALL LIGHT WITHIN REACH, WILL CONTINUE TO MONITOR
[2020-07-25 08:46] VITALS: BP 144/75; TEMP 97.9
--- NOTE | 2020-07-25 10:57 | NUR ---
D/C INSTRUCTIONS GIVEN AND EXPLAINED TO PT, PT VERBALIZED UNDERSTANDING, PT DRESSED SELF WITHOUT ASSISTANCE, PT IS TO BEGIN HOME HEALTH PT AND OT UPON DISHCARGE AND TO BEGIN USING A HEMIWALKER
--- NOTE | 2020-07-25 11:45 | NUR ---
PT D/C VIA WHEELCHAIR TO PERSONAL VEHICLE, NAD NOTED, PERSONAL BELONGINGS ARE WITH PT
== END 2020-07-25 11:43 | disposition home or self-care (01) | DRG 948 ==
LOC: MED/SURG 13:48
PROVIDERS: ADMIT Internal Medicine Endocrinology, Diabetes & Metabolism; ATTEND Internal Medicine
DX: R53.1 Weakness (principal); I69.354 Hemiplegia and hemiparesis following cerebral infarction affecting left non-dominant side; R62.7 Adult failure to thrive; Z91.81 History of falling; E11.9 Type 2 diabetes mellitus without complications; E78.49 Other hyperlipidemia; D72.828 Other elevated white blood cell count; E53.8 Deficiency of other specified B group vitamins; M81.8 Other osteoporosis without current pathological fracture
CPT/HCPCS: 36415; 80048; 85027; 87081

== ENCOUNTER 2021-08-27 14:07 | Outpatient (CLI) | payer OTHER, BC ==
[2021-08-27 14:29] LABS: PLATELET COUNT 298 K/uL (152-353)
[2021-08-27 14:54] LABS: POTASSIUM 4.4 mmol/L (3.6-5.2)
== END 2021-08-27 20:16 | disposition home or self-care (01) ==
LOC: LAB 14:07
PROVIDERS: ATTEND Internal Medicine
DX: E11.9 Type 2 diabetes mellitus without complications (principal); R62.7 Adult failure to thrive; I69.354 Hemiplegia and hemiparesis following cerebral infarction affecting left non-dominant side; R53.1 Weakness; E55.9 Vitamin D deficiency, unspecified; D51.0 Vitamin B12 deficiency anemia due to intrinsic factor deficiency; R53.81 Other malaise; M17.12 Unilateral primary osteoarthritis, left knee; R79.89 Other specified abnormal findings of blood chemistry
CPT/HCPCS: 80053; 80061; 82306; 82607; 83036; 84439; 84443; 85027